=== PATIENT | male | born 1995 | race Caucasian/White ===

== ENCOUNTER 2017-03-15 09:32 | Inpatient (IN) | payer OTHER ==
[~2017-03-15] VITALS: Ht 185.4 cm; Wt 65.8 kg
[2017-03-15] MEDS ORDERED: LORAZEPAM 1 MG TABLET PO PRN ×2 (15:30)
[2017-03-15] MEDS ORDERED: ONDANSETRON 4 MG/2 ML VIAL IM PRN (15:30)
[2017-03-15] MEDS ORDERED: MIRALAX 17 GM POWD.PACK PO PRN (15:30)
[2017-03-15] MEDS ORDERED: MAG HYDROX/AL HYDROX/SIMETH 30 ML LIQUID UDC PO PRN (15:30)
[2017-03-15] MEDS ORDERED: LOPERAMIDE HCL 2 MG CAPSULE PO PRN ×2 (15:30)
[2017-03-15] MEDS ORDERED: LORAZEPAM 2 MG/1 ML VIAL IM PRN (15:30)
--- NOTE | 2017-03-15 16:25 | NUR ---
INTAKE ASSESSMENT Received patient in intake. He is AOX4, stable, and ambulatory. Vital signs WNL. Patient reports NKA. Patient has seizure hx last seizure was 8 years ago. Explained unit protocols and patient verbalized understanding. Will admit patient upon admission to third floor.
[2017-03-15 16:35] VITALS: BP 118/72
--- NOTE | 2017-03-15 16:35 | NUR ---
ADMISSION NOTE Allergy- NKA/NKFA Status-Full code Height 6'1 Weight-145 lb PCP- None Vital Signs- B/P-118/72,HR-82, R-16, TEMP-98.2, SPO2-100%, Pain 0/10 CIWA-11 SMOKE-1 pack a day PMH- Last Seizure was 8 years ago Patient is a 21 year old male admitted to [facility] for ETOH dependence under the care of Dr. Garinca. Urine provided by patient for urine screen and thorough body and belonging check done by MIGRATION SPECIALIST. Patient appears anxious and flushed. Patient is cooperative during nursing assessment. Upon admission Patient is noted to be flat, intoxicated,but cooperative with admission. Patient reported Anxiety, Agitation,and presents with tremors. Patient denies chest pain or SOB. Lung sounds clear with no cough noted. Bowel sounds present in all 4 quadrants. BUE and BLE noted WNL with no edema present. Skin check done with no significant findings. Pt refused PNA vaccine. Patient did not bring any medication from home. Patient denies SI/HI ideations. Pt AOx4. Patient reported first time in treatment. Pt reported Substance abuse history as: ETOH ( Whiskey)- Pt reported drinking daily since age of 10. Last drink was a fifth on 03/14/17 METH- Pt reported using since age of 12 daily snort /smoke last used was 03/08/17 1/2 gm HEROIN-Pt reported using age of 13 daily snort last used was 03/06/17 1gm MARIJUANA-Pt reported using since age of 9 daily last used was 03/15/17 8 cigarettes. Educated patient regarding unit policies and protocols, patient verbalized understanding. Patient oriented to unit by MIGRATION SPECIALIST. Fall and seizure precautions in place. Safety measures in place, Call light within reach. Will cont to monitor.
[2017-03-15 16:50] LABS: *AMPHETAMINE, URINE NEGATIVE (NEGATIVE); *BARBITURATE, URINE NEGATIVE (NEGATIVE); *CANNABINOID, URINE POSITIVE (NEGATIVE); *COCCAINE, URINE NEGATIVE (NEGATIVE); *OPIATE, URINE NEGATIVE (NEGATIVE); *PHENCYCLIDINE SCREEN,URINE NEGATIVE (NEGATIVE)
[2017-03-15] MEDS ORDERED: THIAMINE HCL 200 MG/2 ML VIAL IM ONE (17:00)
[2017-03-15] MEDS: ACETAMINOPHEN 325 MG TABLET PO PRN (17:42)
[2017-03-15] MEDS: LORAZEPAM 1 MG TABLET PO SCH ×2 (17:42→21:17)
--- NOTE | 2017-03-15 17:42 | NUR ---
PRN TYLENOL Pt c/o of headache 11/03. Pt provided with non pharmacological intervention with no relief. Administered PRN Tylenol 650mg Po as ordered. Will cont to monitor and reassess.
[2017-03-15] MEDS ORDERED: QUETIAPINE FUMARATE 25 MG TABLET PO PRN (17:45)
--- NOTE | 2017-03-15 18:42 | NUR ---
REASSESSMENT Pt reported medication effective headache subside to 08/05. Will cont to monitor.
--- NOTE | 2017-03-15 19:00 | NUR ---
Start of Shift Patient Received. Patient is in group activities participating in group meeting. Patient is a 21 year old male admitted on 03/15/17 for ETOH Dependence under the care of Dr. Garnica. Patient was started on 5 day Ativan taper. Patient verbalizes no known allergies, wishe sot be full code, following a regular diet, placed on fall and seizures, skin noted. Patients past medical history noted with history of seizure. This is patients first time in treatment. Per endorsement, patients admission CIWA noted to be 11. Ativan Taper started and 2 mg of Ativan administered. All needs attended to promptly. Will continue plan of care as ordered.
--- NOTE | 2017-03-15 19:20 | NUR ---
END OF SHIFT NOTE Pt started on Ativan taper tolerating well. Pt presented with headache 11/03. Pt given PRN Tylenol 650mg Po noted to be effective pain scale 08/05. Vital signs WNL. Skin intact warm and dry to touch.Vital signs WNL. Encouraged PO fluids as tolerated. All needs met. Safety measures in place, Call light within reach. Pt endorsed to night nurse in stable condition.
[2017-03-15 20:06] VITALS: BP 109/79
[2017-03-15] MEDS: IBUPROFEN 400 MG TABLET PO PRN (21:17)
[2017-03-15] MEDS: GABAPENTIN 300 MG CAPSULE PO SCH (21:17)
[2017-03-15] MEDS: diphenhydrAMINE 50 MG CAPSULE PO PRN (21:17)
--- NOTE | 2017-03-15 21:20 | NUR ---
PRN Medication administered Patient is verbalizing pain 5/10 due to achy legs and verbalizing inability of falling asleep. PRN Motrin and Benadryl administered as per order. Will continue to monitor.
--- NOTE | 2017-03-15 22:15 | NUR ---
PRN Medication Reassessment Patient is able verbalize PRN Motrin is able to assist in minimizing pain in legs. Patient states im slowly making my way to bed. Im hoping to fall asleep. Will continue to monitor.
[2017-03-15 23:18] LABS: BASOPHILS % (AUTO) 0.4 % (0.0-2.0); EOSINOPHILS # (AUTO) 0.1 K/uL (0.0-0.7); HEMATOCRIT 42.4 % (40-50); HEMOGLOBIN 14.5 G/DL (14.0-18.0); LYMPHOCYTES % (AUTO) 19.1 % (20.5-51.5); MEAN CORPUSCULAR HEMOGLOBIN 31.1 UUG (27.0-31.0); MEAN CORPUSCULAR HGB CONC 34 g/dL (32.0-37.0); MEAN CORPUSCULAR VOLUME 90.8 FL (82.0-92.0); MONOCYTES # (AUTO) 0.8 K/UL (0.1-1.30); MONOCYTES % (AUTO) 7.6 % (0.0-11.0); NEUTROPHILS # (AUTO) 7.6 K/UL (1.8-8.9); NEUTROPHILS % (AUTO) 71.9 % (38.5-71.5); PLATELET COUNT (AUTO) 334 K/UL (150-450); RED BLOOD CELL COUNT(AUTO) 4.67 MIL/UL (4.7-6.1); WHITE BLOOD COUNT (AUTO) 10.5 K/UL (4.0-11.2)
[2017-03-15 23:23] LABS: ALANINE AMINOTRANSFERASE 23 U/L (16-63); ALKALINE PHOSPHATASE 61 U/L (50-136); AMYLASE 54 U/L (25-115); ASPARTATE AMINOTRANSFERASE 17 U/L (15-37); BILIRUBIN,TOTAL 0.5 mg/dL (0.2-1.0); CARBON DIOXIDE 31 mmol/L (21-32); CHLORIDE 101 mmol/L (98-107); CREATININE 1.2 mg/dL (0.6-1.3); GLUCOSE 99 mg/dL (74-106); LIPASE 132 U/L (73-393); MAGNESIUM 2.1 mg/dL (1.8-2.4); POTASSIUM 3.6 mmol/L (3.5-5.1); TOTAL PROTEIN, SERUM 8.2 g/dL (6.4-8.2); UREA NITROGEN, BLOOD 13 mg/dL (7-18)
[2017-03-15 23:25] LABS: ETHANOL < 3 MG/DL (0-0)
[2017-03-16 00:40] VITALS: BP 129/80
--- NOTE | 2017-03-16 01:45 | NUR ---
PRN Medication Administration Patient noted awake and pacing hallways. Patient verbalizing increased agitation. PRN Seroquel administered as per order. PRN Benadryl noted note effective. All needs attended to promptly. Will continue to monitor.
--- NOTE | 2017-03-16 02:40 | NUR ---
PRN Medication Reassessment Patient is noted in bed sleeping. Breathing even and non labored. No signs of pain or discomfort noted. Patient noted to be sleeping well with no discomfort noted. PRN Seroquel noted to be effective. Patient continues to sleep with no interruptions noted. Will continue to monitor.
[2017-03-16 04:00] VITALS: BP 104/62
--- NOTE | 2017-03-16 06:59 | NUR ---
End of Shift Patient is in bed sleeping. Breathing even and non labored. No signs of pain or discomfort noted. Patient is a 21 year old male admitted on 03/15/17 for ETOH Dependence under the care of Dr. Garnica and is currently receiving a 5 day Ativan taper. No known allergies, full code, following a regular diet, placed on fall and seizures, skin noted. Patients past medical history noted with history of seizure. Patient was given PRN Motrin, Benadryl, and Seroquel with medications noted to be effective. Last noted CIWA 8. All needs attended to promptly. Will continue plan of care as ordered.
--- NOTE | 2017-03-16 07:57 | NUR ---
START OF SHIFT NOTE Received report from night nurse, Patient is a 21 year old male admitted for ETOH Dependence. NKA. Full code, Regular diet. Pt has a PMH of Seizure. Pt cont on 5 day Ativan taper. Per endorsement pt received PRN medications effective, Slept for 4 hours, Last CIWA-8. Pt received in room, alert and oriented x4, educated regarding plan of care for the day and medication regimen with good verbal understanding. Fall and seizure precautions observed and in place. Will continue to monitor.
[2017-03-16 08:00] VITALS: BP 112/66
[2017-03-16] MEDS: FOLIC ACID 1 MG TABLET PO SCH (08:19)
[2017-03-16] MEDS: THIAMINE HCL 100 MG TABLET PO SCH (08:19)
[2017-03-16] MEDS: GABAPENTIN 300 MG CAPSULE PO SCH ×3 (08:19→21:02)
[2017-03-16] MEDS: MULTIVITAMINS,THERAPEUTIC TABLET PO SCH (08:19)
[2017-03-16] MEDS: LORAZEPAM 1 MG TABLET PO SCH ×3 (08:20→21:02)
[2017-03-16] MEDS ORDERED: TUBERCULIN,PURIF.PROT.DERIV. 5 TU/0.1 ML TEST ID ONE (09:00)
[2017-03-16 12:00] VITALS: BP 126/84
[2017-03-16] MEDS: BACLOFEN 20 MG TABLET PO PRN (12:57)
[2017-03-16] MEDS: IBUPROFEN 400 MG TABLET PO PRN (12:57)
--- NOTE | 2017-03-16 12:57 | NUR ---
PRN BACLOFEN/MOTRIN Pt verbalized muscle spasms and general body aches 11/03. Pt provided with non pharmacological intervention with no relief. Administered PRN Baclofen 20mg PO/ Motrin 400 mg Po as ordered. Will cont to monitor and reassess.
--- NOTE | 2017-03-16 13:57 | NUR ---
REASSESSMENT Pt states medications were effective to alleviating muscle spasms and body aches 08/05. Will cont to monitor.
[2017-03-16 16:00] VITALS: BP 128/83
--- NOTE | 2017-03-16 18:59 | NUR ---
END OF SHIFT NOTE Pt cont on Ativan taper tolerating well. Pt presented with muscle spasms/ general body aches 11/03. Pt given PRN Baclofen/Motrin Po noted to be effective pain scale 08/05. Skin intact warm and dry to touch. Vital signs WNL. Pt attended groups and activities. Encouraged PO fluids as tolerated. All needs met. Safety measures in place, Call light within reach. Pt endorsed to night nurse in stable condition.
--- NOTE | 2017-03-16 19:00 | NUR ---
Start of Shift Patient Received. Patient is in group activities participating in group meeting. Patient is a 21 year old male admitted on 03/15/17 for ETOH Dependence and continues on a 5 day Ativan taper. Patient verbalizes no known allergies, wishes to be full code, following a regular diet, placed on fall and seizures, skin noted. Patients past medical history noted with history of seizure. Per endorsement, was seen and examined by MD with new orders for PRN Baclofen Q6H. Patient was mediated x1 with medication noted to be effective. Last noted CIWA 5. All needs attended to promptly. Will continue plan of care as ordered.
[2017-03-16 20:29] VITALS: BP 124/86
[2017-03-17 00:12] VITALS: BP 131/82
[2017-03-17] MEDS: ONDANSETRON ODT 4 MG TAB.RAPDIS SL PRN (00:14)
[2017-03-17] MEDS: BACLOFEN 20 MG TABLET PO PRN ×2 (00:14→09:48)
[2017-03-17] MEDS: CLONIDINE HCL 0.1 MG TABLET PO PRN (00:14)
[2017-03-17] MEDS: diphenhydrAMINE 50 MG CAPSULE PO PRN (00:14)
--- NOTE | 2017-03-17 00:15 | NUR ---
PRN Medication Administration Patient is verbalizing increased anxiety with agitation, nausea, chills and sweats, body aches, and inability of falling asleep. PRN Zofran, Baclofen, Clonidine, and Benadryl administered as per orders. Will continue plan of care as ordered.
--- NOTE | 2017-03-17 01:15 | NUR ---
PRN Medication Administration Patient noted in bed sleeping. Breathing even and non labored. No signs of pain or discomfort noted. Patient medicated for increased anxiety, agitation, nausea, chills and sweats, body aches, and inability of falling asleep. PRN Zofran, Baclofen, Clonidine, and Benadryl administered as per orders. Patient noted sleeping in bed with no complications noted. PRN Medications noted to be effective. Will continue to monitor. Addendum: 03/17/17 at 0705 by DWAYNE CULLEN LVN PRN Medication Reassessment
[2017-03-17 04:43] VITALS: BP 101/57
[2017-03-17 06:06] LABS: HEPATITIS B SURFACE AG Negative (Negative)
--- NOTE | 2017-03-17 07:05 | NUR ---
End of Shift Patient is in bed sleeping. Breathing even and non labored. No signs of pain or discomfort noted. Patient is a 21 year old male admitted on 03/15/17 for ETOH Dependence under the care of Dr. Garnica and continues on a 5 day Ativan taper. No known allergies, full code, following a regular diet, placed on fall and seizures, skin noted. Patients past medical history noted with history of seizure. Patient was given PRN Benadryl, Clonidine, baclofen, and Zofran with medication noted to be effective. Last noted CIWA 6. All needs attended to promptly. Will endorse to continue plan of care as ordered.
--- NOTE | 2017-03-17 07:32 | NUR ---
START OF SHIFT NOTE Received report from night nurse, Patient is a 21 year old male admitted for ETOH Dependence. NKA. Full code, Regular diet. Pt has a PMH of Seizure. Pt cont on 5 day Ativan taper. Per endorsement pt received PRN medications effective, Slept for 4 hours, Last CIWA-6. Pt received in room, alert and oriented x4, educated regarding plan of care for the day and medication regimen with good verbal understanding. Fall and seizure precautions observed and in place. Will continue to monitor.
[2017-03-17 08:00] VITALS: BP 109/67
[2017-03-17] MEDS: GABAPENTIN 300 MG CAPSULE PO SCH ×2 (08:21→14:55)
[2017-03-17] MEDS: FOLIC ACID 1 MG TABLET PO SCH (08:21)
[2017-03-17] MEDS: MULTIVITAMINS,THERAPEUTIC TABLET PO SCH (08:22)
[2017-03-17] MEDS: THIAMINE HCL 100 MG TABLET PO SCH (08:22)
[2017-03-17] MEDS: LORAZEPAM 1 MG TABLET PO SCH ×4 (08:22→21:04)
[2017-03-17] MEDS: IBUPROFEN 400 MG TABLET PO PRN (09:48)
--- NOTE | 2017-03-17 09:48 | NUR ---
PRN BACLOFEN/MOTRIN Pt verbalized muscle spasms and lower bilateral legs pain 5/10. Pt provided with non pharmacological intervention with no relief. Administered PRN Baclofen 20mg PO/ Motrin 400 mg Po as ordered. Will cont to monitor and reassess.
[2017-03-17] MEDS ORDERED: LORAZEPAM 1 MG TABLET PO ONE (10:15)
[2017-03-17] MEDS ORDERED: BUPRENORPHINE HCL 2 MG TAB.SUBL SL ONE (10:15)
--- NOTE | 2017-03-17 10:33 | NUR ---
SUBUTEX X1/ATIVAN X1 ORDER Pt was seen by MD with new x1 order of Subutex 4mg/Ativan 2mg. MD unable to entered the orders. Medications administered as ordered COWS noted-11/CIWA noted-9. Will cont to monitor and reassess.
--- NOTE | 2017-03-17 10:38 | NUR ---
REASSESSMENT Pt states medications were effective to alleviating muscle spasms and bilateral lower legs pain 08/05. Will cont to monitor.
--- NOTE | 2017-03-17 11:00 | NUR ---
SUBUTEX REASSESSMENT Pt is in stable condition, resting in bed COWS score noted -4. Pt stated medication effective.
--- NOTE | 2017-03-17 11:30 | NUR ---
VALIUM REASSESSMENT Pt stated medication effective CIWA score noted-5. Will cont to monitor.
[2017-03-17 12:00] VITALS: BP 124/84
[2017-03-17 16:00] VITALS: BP 118/65
[2017-03-17] MEDS ORDERED: KETOROLAC TROMETHAMINE 30 MG INJ IM PRN (16:15)
[2017-03-17] MEDS ORDERED: METHOCARBAMOL 750 MG TABLET PO PRN (16:15)
--- NOTE | 2017-03-17 18:46 | NUR ---
END OF SHIFT NOTE Pt cont on Ativan taper tolerating well. Pt presented with muscle spasms/ general body aches 12/03. Pt given PRN Baclofen/Motrin Po noted to be effective pain scale 08/05, Pt also received x1 dose of Subutex and Ativan. Skin intact warm and dry to touch. Vital signs WNL. All needs met. Safety measures in place, Call light within reach. Pt endorsed to night nurse in stable condition.
--- NOTE | 2017-03-17 19:00 | NUR ---
Start of Shift Patient Received. Patient is in group activities participating in group meeting. Patient is a 21 year old male admitted on 03/15/17 for ETOH Dependence and continues on a 5 day Ativan taper. Patient verbalizes no known allergies, wishes to be full code, following a regular diet, placed on fall and seizures, skin noted. Patients past medical history noted with history of seizure. Per endorsement, was given 1x dose of Subutex 4mg and one time dose of Ativan 2 mg for COWS of 11 and CIWA of 4. Patient was also given PRN Baclofen and Motrin with medications noted to be effective. Patient noted with increased behavior. Patient noted to drinking several cups of coffee and adding up to 12 sugar packets. Patient was placed on a 1:1 for behavior. 1:1 was shortly lifted when patient verbalized compliance. Last noted CIWA 4. All needs attended to promptly. Will continue plan of care as ordered.
[2017-03-17 20:34] VITALS: BP 117/65
[2017-03-17] MEDS: GABAPENTIN 400 MG CAPSULE PO SCH (21:04)
[2017-03-17] MEDS: BACLOFEN 10 MG TABLET PO SCH (21:05)
[2017-03-17] MEDS: CLONIDINE HCL 0.1 MG TABLET PO SCH (21:05)
[2017-03-18 00:40] VITALS: BP 124/79
[2017-03-18] MEDS: ONDANSETRON ODT 4 MG TAB.RAPDIS SL PRN (00:58)
[2017-03-18] MEDS: diphenhydrAMINE 50 MG CAPSULE PO PRN ×2 (00:58→23:44)
[2017-03-18] MEDS: IBUPROFEN 600 MG TABLET PO PRN ×2 (00:58→09:58)
--- NOTE | 2017-03-18 01:00 | NUR ---
PRN Medication Administration Patient verbalized increase nausea and pain 5/10 due to headache. PRN Motrin and Zofran administered as per order. Will continue to monitor.
--- NOTE | 2017-03-18 02:00 | NUR ---
PRN Medication Reassessment Patient noted in bed sleeping. Breathing even and non labored. No signs of pain or discomfort noted. Patient medicated for increased nausea and pain due to headache with PRN Motrin and Zofran. Patient noted sleeping in bed with no complications noted. PRN medications noted to be effective. Will continue to monitor.
[2017-03-18 04:00] VITALS: BP 108/60
--- NOTE | 2017-03-18 07:04 | NUR ---
End of Shift Patient is in bed sleeping. Breathing even and non labored. No signs of pain or discomfort noted. Patient is a 21 year old male admitted on 03/15/17 for ETOH Dependence under the care of Dr. Garnica and continues on a 5 day Ativan taper. No known allergies, full code, following a regular diet, placed on fall and seizures, skin noted. Patients past medical history noted with history of seizure. Patient was given PRN Motrin and Zofran with medication noted to be effective. Last noted CIWA 8. All needs attended to promptly. Will endorse to continue plan of care as ordered.
--- NOTE | 2017-03-18 07:30 | NUR ---
Start of shift note; Received report from night nurse. Patient is a 21 year old male admitted on 03/15/17 for ETOH withdrawals. Patient was placed on a 5 day Ativan taper, no adverse reactions noted. Patient reported history of seizure. Patient has never been to detox before. Patient is on full code status, regular diet, NKA. Patient slept for 5 hours. All safety measures secured. Will continue to monitor patient.
[2017-03-18 08:00] VITALS: BP 107/77
[2017-03-18] MEDS: MULTIVITAMINS,THERAPEUTIC TABLET PO SCH (08:37)
[2017-03-18] MEDS: GABAPENTIN 400 MG CAPSULE PO SCH (08:37)
[2017-03-18] MEDS: BACLOFEN 10 MG TABLET PO SCH (08:37)
[2017-03-18] MEDS: LORAZEPAM 1 MG TABLET PO SCH ×3 (08:37→20:01)
[2017-03-18] MEDS: THIAMINE HCL 100 MG TABLET PO SCH (08:37)
[2017-03-18] MEDS: CLONIDINE HCL 0.1 MG TABLET PO SCH ×3 (08:37→20:01)
[2017-03-18] MEDS: FOLIC ACID 1 MG TABLET PO SCH (08:37)
--- NOTE | 2017-03-18 09:58 | NUR ---
PRN medication; Patient is complaining of generalized pain/headache rated 7/10. PRN Motrin 600mg PO given for pain. Will continue to monitor patient for effectiveness of medication.
--- NOTE | 2017-03-18 10:58 | NUR ---
Re-assessment; Patient denies headache/pain at this time. PRN medication is effective.
[2017-03-18 12:00] VITALS: BP 110/70
[2017-03-18] MEDS: GABAPENTIN 300 MG CAPSULE PO SCH ×2 (14:13→20:01)
[2017-03-18] MEDS: DICYCLOMINE HCL 20 MG TABLET PO SCH ×2 (14:13→20:01)
[2017-03-18] MEDS: BACLOFEN 20 MG TABLET PO SCH ×2 (14:14→20:02)
[2017-03-18 16:00] VITALS: BP 124/80
--- NOTE | 2017-03-18 18:53 | NUR ---
End of shift note; Patient is AOX4. Patient is a 21 year old male admitted on 03/15/17 for ETOH withdrawals. Patient was placed on a 5 day Ativan taper, no adverse reactions noted. Patient reported history of seizure. Patient has never been to detox before. Patient is on full code status, regular diet, NKA. Patient remained compliant with treatment plan, medications were effective in reducing withdrawal symptoms. All safety measures secured. Met all needs.
--- NOTE | 2017-03-18 19:10 | NUR ---
Start of shift note Received report from day shift nurse. Pt is a 21 yo male, A+Ox4, presenting to [facility] for ETOH dependence. Pt has NKA, is on Full Code status, and on Regular diet. Pt is on Fall and Seizure precautions. Pt has HX of Seizure. Pt is on 5 day Ativan taper, tolerated well. No s/s of distress noted at this time. Respirations even and unlabored. Will continue to monitor.
[2017-03-18 20:19] VITALS: BP 123/69
--- NOTE | 2017-03-18 23:46 | NUR ---
PRN Benadryl Pt c/o inability to sleep and requested for PRN Benadryl. Medication given and tolerated well. Will reassess within 1 HR. Will continue to monitor.
[2017-03-19 00:15] VITALS: BP 102/59
--- NOTE | 2017-03-19 00:45 | NUR ---
PRN Benadryl Reassessment Medication effective. Pt is resting well in bed. No s/s of ASE/distress noted at this time. Respirations even and unlabored. Will continue to monitor.
[2017-03-19 04:03] VITALS: BP 110/63
--- NOTE | 2017-03-19 07:00 | NUR ---
End of shift note Pt is a 21 yo male, A+Ox4, presenting to [facility] for ETOH dependence. Pt has NKA, is on Full Code status, and on Regular diet. Pt is on Fall and Seizure precautions. Pt has HX of Seizure. Pt is on 5 day Ativan taper, tolerated well. Pt was given PRN Benadryl @9336. Pt slept for a total of 7 HRS. Last CIWA: 1 @0400. No s/s of distress noted at this time. Respirations even and unlabored. Will endorse to day shift nurse.
--- NOTE | 2017-03-19 08:29 | NUR ---
START OF SHIFT NOTE Patient is alert and orientated X 4. He is up walking around the unit this morning. Vital signs are WNL. Patient slept 7 hours last night per night nurse. Last CIWA 1. PRN Benadryl was given with effectiveness. Patient is on a 5 day ativan taper and tolerating well. All safety measures in place. Will continue to monitor patient.
[2017-03-19 08:35] VITALS: BP 107/62
[2017-03-19] MEDS: BACLOFEN 20 MG TABLET PO SCH ×3 (09:15→21:01)
[2017-03-19] MEDS: GABAPENTIN 300 MG CAPSULE PO SCH ×3 (09:15→21:01)
[2017-03-19] MEDS: CLONIDINE HCL 0.1 MG TABLET PO SCH ×3 (09:15→21:02)
[2017-03-19] MEDS: FOLIC ACID 1 MG TABLET PO SCH (09:16)
[2017-03-19] MEDS: LORAZEPAM 1 MG TABLET PO SCH ×2 (09:16→21:01)
[2017-03-19] MEDS: THIAMINE HCL 100 MG TABLET PO SCH (09:16)
[2017-03-19] MEDS: DICYCLOMINE HCL 20 MG TABLET PO SCH ×3 (09:16→21:01)
[2017-03-19] MEDS: MULTIVITAMINS,THERAPEUTIC TABLET PO SCH (09:16)
[2017-03-19 13:16] VITALS: BP 121/80
[2017-03-19] MEDS: HYDROXYZINE PAMOATE 25 MG CAPSULE PO PRN (13:40)
[2017-03-19] MEDS: CLONIDINE HCL 0.1 MG TABLET PO PRN (13:40)
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
[2017-03-19] MEDS: ACETAMINOPHEN 325 MG TABLET PO PRN (14:07)
--- NOTE | 2017-03-19 14:09 | NUR ---
PRN TYLENOL GIVEN patient complaining of headache pain 5 out of 10. will continue to monitor
--- NOTE | 2017-03-19 14:40 | NUR ---
PRN REASSESSMENT patient expresses his headache has improved. Pain has decreased to 2 out of 10
[2017-03-19 17:29] VITALS: BP 106/64
[2017-03-19] MEDS: ONDANSETRON ODT 4 MG TAB.RAPDIS SL PRN (18:54)
--- NOTE | 2017-03-19 18:59 | NUR ---
END OF SHIFT NOTE Patient is a 21 year old male admitted for ETOH dependence. He is alert and orientated X4. Vital signs WNL. Patient is on a Ativan taper and tolerating well. Patient was given Tylenol PRN for a headache with effectiveness. Patient was also given Zofran SL for 1 time throwing up. Patient participated in group and activities. Patient got into an argument with a staff member and needed redirecting. Last CIWA 5. All needs have been met and all safety measures in place. Will continue to monitor patient until endorsed to oncoming nurse.
[2017-03-19 20:45] VITALS: BP 108/62
[2017-03-20] MEDS: IBUPROFEN 600 MG TABLET PO PRN
--- NOTE | 2017-03-20 00:02 | NUR ---
PRN Motrin and Benadryl Pt c/o headache and inability to sleep and requested for PRN Motrin and Benadryl. Medications given and tolerated well. Will reassess within 1 HR. Will continue to monitor.
[2017-03-20 00:27] VITALS: BP 108/65
--- NOTE | 2017-03-20 01:00 | NUR ---
PRN Motrin and Benadryl Reassessment Medications effective. Pt is resting in bed at this time. No s/s of ASE/distress noted at this time. Respirations even and unlabored. Will continue to monitor.
[2017-03-20] MEDS: ACETAMINOPHEN 325 MG TABLET PO PRN (02:27)
[2017-03-20] MEDS: HYDROXYZINE PAMOATE 25 MG CAPSULE PO PRN ×2 (02:27→12:35)
--- NOTE | 2017-03-20 02:31 | NUR ---
PRN Tylenol and Vistaril Pt c/o headache and anxiety and requested for PRN Tylenol and Vistaril. Medications even and unlabored. Will reassess within 1 HR. Will continue to monitor.
--- NOTE | 2017-03-20 03:30 | NUR ---
PRN Tylenol and Vistaril Reassessment Medications effective. No s/s of ASE/distress noted at this time. Respirations even and unlabored. Will continue to monitor.
[2017-03-20 04:05] VITALS: BP 110/73
--- NOTE | 2017-03-20 06:46 | NUR ---
End of shift note Pt is a 21 yo male, A+Ox4, presenting to [facility] for ETOH dependence. Pt has NKA, is on Full Code status, and on Regular diet. Pt is on Fall and Seizure precautions. Pt has HX of Seizure. Pt is on 5 day Ativan taper, tolerated well. Pt was given PRN Motrin and Benadryl @0002, and PRN Tylenol and Vistaril @0231. Pt slept for a total of 2 HRS. Last CIWA: 2 @0400. No s/s of distress noted at this time. Respirations even and unlabored. Will endorse to day shift nurse.
--- NOTE | 2017-03-20 07:00 | NUR ---
Start of Shift Notes: Received patient in his room. Alert and oriented x 4. Verbally responsive. Able to make needs known. Respirations even and unlabored. No SOB noted. SKin warm and dry to touch. Abdomen soft and non-distended. BS (+) in all 4 quadrants. No complains of N/V/D or constipation noted. Voids independently. Ambulatory ad tomasz with steady gait. Patient is a 21 year old male admitted for ETOH dependence who was placed on a 5-day Ativan taper as ordered. No adverse reactions noted. Has past medical hx of seizures. NKA. FULL CODE. Regular diet. Prior to admission, patient was using 1 pint of whiskey and 4 to 5 grams of marijuana daily. Educated patient on his current plan of care for the day and his medication regimen. Encouraged oral fluid intake and encouraged group participation to learn new skills to prevent relapse. On fall and seizure precautions. Will continue to monitor closely.
[2017-03-20 08:00] VITALS: BP 110/61
[2017-03-20] MEDS: THIAMINE HCL 100 MG TABLET PO SCH (08:59)
[2017-03-20] MEDS: DICYCLOMINE HCL 20 MG TABLET PO SCH ×3 (08:59→21:00)
[2017-03-20] MEDS: FOLIC ACID 1 MG TABLET PO SCH (08:59)
[2017-03-20] MEDS: CLONIDINE HCL 0.1 MG TABLET PO SCH ×3 (08:59→20:59)
[2017-03-20] MEDS: MULTIVITAMINS,THERAPEUTIC TABLET PO SCH (08:59)
[2017-03-20] MEDS: GABAPENTIN 300 MG CAPSULE PO SCH ×3 (08:59→20:59)
[2017-03-20] MEDS: BACLOFEN 20 MG TABLET PO SCH ×3 (08:59→21:00)
[2017-03-20] MEDS ORDERED: LORAZEPAM 1 MG TABLET PO SCH (09:00)
[2017-03-20 12:00] VITALS: BP 130/73
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
--- NOTE | 2017-03-20 12:35 | NUR ---
Vistaril 50 mg PO given: Patient appears anxious. Noted with mild sweats and mild tremors. Encouraged patient to verbalize his feelings and concerns. Redirected with no help. Medicated patient with Vistaril 50 mg PO as ordered. Will monitor for effectiveness.
--- NOTE | 2017-03-20 13:35 | NUR ---
Re-assessment: Per patient, PRN Vistaril was mildly effective in reducing anxiety.
[2017-03-20 16:00] VITALS: BP 134/103
--- NOTE | 2017-03-20 16:38 | NUR ---
Off room restriction: Patient has been adherent to unit's policies and apologized for his behavior. Taken off room restriction at this time.
[2017-03-20] MEDS: CLONIDINE HCL 0.1 MG TABLET PO PRN (17:39)
--- NOTE | 2017-03-20 17:40 | NUR ---
Robaxin 750mg PO /Clonidine 0.1mg PO given: Patient noted with anxiety. BP 134/101, HR 100. Also noted with complain of generalized body aches. Non-pharmacological interventions were provided but ineffective. Medicated patient with Robaxin 750 mg PO and Clonidine 0.1mg PO as ordered. Will monitor for effectiveness.
--- NOTE | 2017-03-20 18:38 | NUR ---
Re-assessment: Per patient, PRN Robaxin and CLonidine were effective in reducing patient's muscle aches. PL 0/10 and less anxiety noted. BP 116/78.
--- NOTE | 2017-03-20 18:41 | NUR ---
End of Shift Notes: Patient continues to be on 5-day Ativan taper as ordered. No adverse reactions noted. Patient is tolerating taper well. VS monitored closely q 4 hours. No significant abnormalities noted. Withdrawal symptoms were closely monitored. Initial CIWA 9, patient presented with gross tremors, sweats, anxiety and agitation. Medicated patient with Vistaril 50 mg Po as ordered for anxiety at 1235 with mild help after 1 hour. At 1740, patient complained of myalgia and anxiety with elevated BP of 134/103. Medicated patient with Robaxin and Clonidine as ordered with help after 1 hour. Last CIWA 4. Patient was placed on room restriction x 4 hours due to behavior and is now off. Patient was agitated throughout the day and demanding for cigarettes and for staff to take him downstairs despite units rules. Requires encouragement to comply with therapeutic plan of care. Compliant with meds. Support provided. All needs met and attended. Will continue to monitor closely.
[2017-03-20 18:49] LABS: *AMPHETAMINE, URINE NEGATIVE (NEGATIVE); *BARBITURATE, URINE NEGATIVE (NEGATIVE); *CANNABINOID, URINE POSITIVE (NEGATIVE); *COCCAINE, URINE NEGATIVE (NEGATIVE); *OPIATE, URINE NEGATIVE (NEGATIVE); *PHENCYCLIDINE SCREEN,URINE NEGATIVE (NEGATIVE)
--- NOTE | 2017-03-20 19:25 | NUR ---
Start of shift note Received report from day shift nurse. Pt is a 21 yo male, A+Ox4, presenting to [facility] for ETOH dependence. Pt has NKA, is on Full Code status, and on Regular diet. Pt is on Fall and Seizure precautions. Pt has HX of Seizure. Pt is on 5 day Ativan taper, tolerated well. No s/s of distress noted at this time. Respirations even and unlabored. Will continue to monitor. Addendum: 03/20/17 at 1941 by BESSIE SMITH LVN Pt is due for discharge tomorrow
[2017-03-20 20:38] VITALS: BP 105/71
[2017-03-20] MEDS: diphenhydrAMINE 50 MG CAPSULE PO PRN ×2 (23:32)
--- NOTE | 2017-03-20 23:33 | NUR ---
PRN Benadryl Pt c/o inability to sleep and requested for PRN Benadryl. Medication given and tolerated well. Will reassess within 1 HR. Will continue to monitor.
[2017-03-21 00:33] VITALS: BP 101/66
[2017-03-21 04:09] VITALS: BP 105/69
--- NOTE | 2017-03-21 07:00 | NUR ---
End of shift note Pt is a 21 yo male, A+Ox4, presenting to [facility] for ETOH dependence. Pt has NKA, is on Full Code status, and on Regular diet. Pt is on Fall and Seizure precautions. Pt has HX of Seizure. Pt has completed 5 day Ativan taper, tolerated well, and is due for discharge today. Pt was given PRN Benadryl @2333. Pt slept for a total of 7 HRS. Last CIWA: 3 @0400. No s/s of distress noted at this time. Respirations even and unlabored. Will endorse to day shift nurse.
[2017-03-21] MEDS ORDERED: HYDR-3895 PO (07:30)
[2017-03-21] MEDS ORDERED: ONDA4TAB11 SL (07:30)
[2017-03-21] MEDS ORDERED: BACL20TA PO (07:30)
[2017-03-21] MEDS ORDERED: CLON0.1T14 PO (07:30)
[2017-03-21] MEDS ORDERED: DICY20TA28 PO (07:30)
[2017-03-21] MEDS ORDERED: GABA-534 PO (07:30)
--- NOTE | 2017-03-21 07:32 | NUR ---
START OF SHIFT NOTE: Received report from shift supervisor melting nurse. Pt is a 21 yo male, A+Ox4, presenting to [facility] for ETOH dependence. To be discharged this AM. Color good, skin warm and dry. Respirations even and unlabored. Safety precautions observed. Call light within reach.
[2017-03-21 08:00] VITALS: BP 117/82
[2017-03-21] MEDS: BACLOFEN 20 MG TABLET PO SCH (08:24)
[2017-03-21] MEDS: THIAMINE HCL 100 MG TABLET PO SCH (08:24)
[2017-03-21 08:25] VITALS: BP 117/64
[2017-03-21] MEDS: FOLIC ACID 1 MG TABLET PO SCH (08:25)
[2017-03-21] MEDS: DICYCLOMINE HCL 20 MG TABLET PO SCH (08:25)
[2017-03-21] MEDS: MULTIVITAMINS,THERAPEUTIC TABLET PO SCH (08:25)
[2017-03-21] MEDS: IBUPROFEN 600 MG TABLET PO PRN (08:25)
[2017-03-21] MEDS: CLONIDINE HCL 0.1 MG TABLET PO SCH (08:25)
[2017-03-21] MEDS: GABAPENTIN 300 MG CAPSULE PO SCH (08:25)
--- NOTE | 2017-03-21 08:30 | NUR ---
Discharged papers signed. No home meds. VSS
--- NOTE | 2017-03-21 09:35 | NUR ---
Pt discharged in stable condition with all valuables and belongings. No home meds. Denies SI/HI. To [place] [facility] [employer] private car.
== END 2017-03-21 09:35 | disposition other institution (70) | DRG 895 ==
LOC: SRC 15:11
PROVIDERS: ADMIT Internal Medicine; ATTEND Internal Medicine
PROC: HZ2ZZZZ Detoxification Services for Substance Abuse Treatment (ICD-10-PCS; principal; 2017-03-15)
PROC: HZ41ZZZ Group Counseling for Substance Abuse Treatment, Behavioral (ICD-10-PCS; 2017-03-16)
PROC: HZ31ZZZ Individual Counseling for Substance Abuse Treatment, Behavioral (ICD-10-PCS; 2017-03-18)
DX: F10.230 Alcohol dependence with withdrawal, uncomplicated (principal); F13.10 Sedative, hypnotic or anxiolytic abuse, uncomplicated; F12.10 Cannabis abuse, uncomplicated; F15.10 Other stimulant abuse, uncomplicated; F17.210 Nicotine dependence, cigarettes, uncomplicated; Y90.9 Presence of alcohol in blood, level not specified; F41.9 Anxiety disorder, unspecified; Z86.61 Personal history of infections of the central nervous system; Z83.3 Family history of diabetes mellitus; Z82.49 Family history of ischemic heart disease and other diseases of the circulatory system; Z81.8 Family history of other mental and behavioral disorders; Z81.1 Family history of alcohol abuse and dependence; Z59.1 Inadequate housing
CPT/HCPCS: 36415; 70030-TC; 80307; 80349; 83690; 83735; 85025; 86580; 86592; 86705; 86803; 87340; 87806; A4663; G0480; J3411; Q0162; Q0163